=== PATIENT | male | born 1990 | race Native Hawaiian/Other Pacific Islander ===

== ENCOUNTER 2024-04-21 20:32 | Emergency (ER) | payer BC ==
[2024-04-21] MEDS: IBUPROFEN 600 MG TAB PO STA (21:22)
[2024-04-21] MEDS: ONDANSETRON ODT 4 MG TAB PO STA (21:22)
[2024-04-21] MEDS: ACETAMINOPHEN TAB 500 MG TAB PO STA (21:23)
[2024-04-21] MEDS: ORPHENADRINE 30 MG/ML 2 ML VIAL IM STA (22:47)
[2024-04-21] MEDS: AMOXICILLIN 500 MG CAP PO STA (22:47)
[2024-04-21] MEDS: LIDOCAINE 4% PATCH TOPICAL ONE (22:48)
--- NOTE | 2024-04-21 23:04 | ED ---
ENT HPI - General Chief complaint: ENT Stated complaint: sore throat, ear pain, etch Time Seen by Provider: 04/21/24 20:38 Source: patient Mode of arrival: ambulatory Limitations: no limitations - History of Present Illness Initial comments: 34-year-old male presenting with chief complaint of sore throat. Patient has had a sore throat since Monday. Also experiencing vomiting. He is febrile today. Admits to cough. No chest pain or difficulty breathing. No abdominal pain. No diarrhea. Patient is also a flareup of his chronic back pain. This is lower back pain with radiation down the legs. No new injury or trauma. No loss of bowel or bladder control or saddle paresthesia. No urinary symptoms. - Related Data Previous Rx's Medication Instructions Recorded Amoxicillin 500 mg PO Q12HR 10 Days #20 cap 04/21/24 Allergies Allergy/AdvReac Type Severity Reaction Status Date / Time Sulfa (Sulfonamide Allergy Rash/Hives Verified 04/21/24 20:36 Antibiotics) Review of Systems ROS Statement: Those systems with pertinent positive or pertinent negative responses have been documented in the HPI. ROS Other: All systems not noted in ROS Statement are negative. Past Medical History Past Medical History: No Reported History History of Any Multi-Drug Resistant Organisms: None Reported Past Surgical History: No Surgical Hx Reported Past Psychological History: No Psychological Hx Reported Past Alcohol Use History: Occasional Past Drug Use History: None Reported General Exam Limitations: no limitations General appearance: alert, in no apparent distress Head exam: Present: atraumatic, normocephalic, normal inspection Eye exam: Present: normal appearance, EOMI Expanded Throat exam: tonsillar erythema Neck exam: Present: normal inspection, tenderness, lymphadenopathy. Absent: meningismus Respiratory exam: Present: normal lung sounds bilaterally. Absent: respiratory distress, wheezes, rales, rhonchi, stridor Cardiovascular Exam: Present: regular rate, normal rhythm, normal heart sounds. Absent: systolic murmur, diastolic murmur, rubs, gallop, clicks Neurological exam: Present: alert, oriented X3 Psychiatric exam: Present: normal affect, normal mood Skin exam: Present: normal color Course Vital Signs 04/21/24 20:33 Temperature 99.3 F Pulse Rate 115 H Respiratory 16 Rate Blood Pressure 101/67 O2 Sat by Pulse 98 Oximetry Medical Decision Making - Medical Decision Making Was pt. sent in by a medical professional or institution (HATTIE Nolan, SCIENTIFIC LINGUIST, urgent care, hospital, or senior care...) When possible be specific @ -No Did you speak to anyone other than the patient for history (EMS, parent, family, police, friend...)? What history was obtained from this source @ -No Did you review nursing and triage notes (agree or disagree)? Why? @ -I reviewed and agree with nursing and triage notes Were old charts reviewed (outside hosp., previous admission, EMS record, old EKG, old radiological studies, urgent care reports/EKG's, senior care records)? Report findings @ -No old charts were reviewed Differential Diagnosis (chest pain, altered mental status, abdominal pain women, abdominal pain men, vaginal bleeding, weakness, fever, dyspnea, syncope, headache, dizziness, GI bleed, back pain, seizure, CVA, palpatations, mental health, musculoskeletal)? @ -Differential includes URI, strep pharyngitis, viral pharyngitis, peritonsillar abscess, this is not an all-inclusive list EKG interpreted by me (3pts min.). @ -As above X-rays interpreted by me (1pt min.). @ -None done CT interpreted by me (1pt min.). @ -None done U/S interpreted by me (1pt. min.). @ -None done What testing was considered but not performed or refused? (CT, X-rays, U/S, labs)? Why? @ -None What meds were considered but not given or refused? Why? @ -None Did you discuss the management of the patient with other professionals (professionals i.e. HATTIE Nolan, SCIENTIFIC LINGUIST, lab, RT, psych nurse, social worker delinquency prevention, child care worker, teacher, occupational health and safety officer, geriatric case manager)? Give summary @ -No Was smoking cessation discussed for >3mins.? @ -No Was critical care preformed (if so, how long)? @ -No Were there social determinants of health that impacted care today? How? (Homelessness, low income, unemployed, alcoholism, drug addiction, transportation, low edu. Level, literacy, decrease access to med. care, fdc, rehab)? @ -No Was there de-escalation of care discussed even if they declined (Discuss DNR or withdrawal of care, Hospice)? DNR status @ -No What co-morbidities impacted this encounter? (DM, HTN, Smoking, COPD, CAD, Cancer, CVA, ARF, Chemo, Hep., AIDS, mental health diagnosis, sleep apnea, morbid obesity)? @ -None Was patient admitted / discharged? Hospital course, mention meds given and route, prescriptions, significant lab abnormalities, going to OR and other pertinent info. @ -34-year-old male presenting with chief complaint of of sore throat. History and physical examination are conducted. Posterior pharynx is erythematous, no midline shift. No stridor or drooling. No muffled voice. Patient is positive for group A strep. Negative for influenza, RSV, COVID. Patient will be treated with amoxicillin. For his back pain same Norflex and lidocaine patch. He received Motrin Tylenol for fever. Zofran for nausea. On reassessment he reports improvement in his symptoms. Prescription for amoxicillin sent to the pharmacy. Discharged. Follow-up with PCP. Report back to ER with any new or worsening symptoms. Discussed return parameters and answered all questions. Patient conveyed verbal understanding and agreed to the plan. I discussed this case in detail with my attending Dr. Fall Undiagnosed new problem with uncertain prognosis? @ -No Drug Therapy requiring intensive monitoring for toxicity (Heparin, Nitro, Insulin, Cardizem)? @ -No Were any procedures done? @ -No Diagnosis/symptom? @ -Strep pharyngitis Acute, or Chronic, or Acute on Chronic? @ -Acute Uncomplicated (without systemic symptoms) or Complicated (systemic symptoms)? @ -Complicated Side effects of treatment? @ -No Exacerbation, Progression, or Severe Exacerbation? @ -No Poses a threat to life or bodily function? How? (Chest pain, [place], [place], pneumonia, PE, COPD, DKA, ARF, appy, cholecystitis, CVA, Diverticulitis, Homicidal, Suicidal, threat to staff... and all critical care pts) @ -Potential but unlikely Diagnosis/symptom? @Back pain Acute, or Chronic, or Acute on Chronic? @Acute on chronic Uncomplicated (without systemic symptoms) or Complicated (systemic symptoms)? @Uncomplicated Side effects of treatment? @None Exacerbation, Progression, or Severe Exacerbation] @No Poses a threat to life or bodily function? @No - Lab Data Lab Results 04/21/24 04/21/24 Range/Units 21:15 21:15 Influenza Type A (PCR) Not Detected (Not Detectd) Influenza Type B (PCR) Not Detected (Not Detectd) RSV (PCR) Not Detected (Not Detectd) SARS-CoV-2 (PCR) Not Detected (Not Detectd) Group A Strep (PCR) DETECTED A (Not Detectd) Disposition Clinical Impression: Strep pharyngitis Disposition: HOME SELF-CARE Condition: Good Instructions (If sedation given, give patient instructions): Strep Throat (ED) Additional Instructions: Follow-up with PCP. Report back to ER with any new or worsening symptoms. Alternate Motrin and Tylenol for fever control. Take medication as prescribed. Prescriptions: Amoxicillin 500 mg PO Q12HR 10 Days #20 cap Is patient prescribed a controlled substance at d/c from ED?: No Referrals: None,Stated [Primary Care Provider] - 1-2 days Time of Disposition: 23:04
[2024-04-21 23:11] VITALS: BP 112/73; PULSE 87; RESP 18; TEMP 98.2
== END 2024-04-21 23:12 | disposition home or self-care (01) ==
LOC: EC 20:32
DX: J02.0 Streptococcal pharyngitis (principal); G89.29 Other chronic pain; M54.9 Dorsalgia, unspecified; Z88.2 Allergy status to sulfonamides
CPT/HCPCS: 87651; 87636; 99283; 96372; J2360

== ENCOUNTER 2024-04-25 23:26 | Emergency (ER) | payer BC ==
[2024-04-26] MEDS: diphenhydrAMINE 50 MG/ML 1 ML VIAL IVP STA (00:38)
[2024-04-26] MEDS: METOCLOPRAMIDE 5 MG/ML 2 ML VIAL IVP STA (00:40)
[2024-04-26 00:42] LABS: Basophils # (A) 0.1 k/uL (0-0.2); Basophils % (A) 1 %; Eosinophils # (A) 0.3 k/uL (0-0.7); Eosinophils % (A) 1 %; HCT 41.5 % (39.0-53.0); Lymphocytes # (A) 3.7 k/uL (1.0-4.8); Lymphocytes % (A) 19 %; MCH 28.4 pg (25.0-35.0); MCHC 33.8 g/dL (31.0-37.0); MCV 83.9 fL (80.0-100.0); Mean Platelet Volume 7.9; Monocytes # (A) 1.3 k/uL (0-1.0); Monocytes % (A) 7 %; Neutrophils # (A) 14.2 k/uL (1.3-7.7); Neutrophils % (A) 71 %; Platelet Count 337 k/uL (150-450); RBC 4.95 m/uL (4.30-5.90); RDW 12.8 % (11.5-15.5)
[2024-04-26] MEDS: MORPHINE SULFATE 4 MG/ML SYRINGE IVP STA (00:42)
[2024-04-26] MEDS: SODIUM CHLORIDE 0.9% 1,000 ML IV STA (00:44)
[2024-04-26 01:00] LABS: ALT 34 U/L (4-49); AST 32 U/L (17-59); African American GFR (CKD) >90 (>60 ml/min/1.73 sqM); Albumin 4.4 g/dL (3.5-5.0); Alkaline Phosphatase 76 U/L (38-126); Anion Gap 9 mmol/L; Blood Urea Nitrogen 11 mg/dL (9-20); Calcium 9.2 mg/dL (8.4-10.2); Carbon Dioxide 24 mmol/L (22-30); Chloride 105 mmol/L (98-107); Glucose 87 mg/dL (74-99); Non-African American GFR(CKD) >90 (>60 ml/min/1.73 sqM); Potassium 4.2 mmol/L (3.5-5.1); Sodium 138 mmol/L (137-145); Total Bilirubin 0.6 mg/dL (0.2-1.3); Total Protein 7.6 g/dL (6.3-8.2)
--- NOTE | 2024-04-26 01:17 | CT ---
EXAMINATION TYPE: CT brain wo con DATE OF EXAM: 04/26/2024 COMPARISON: None. HISTORY: Patient states headache for the past 4 days. States he is being treated for strep. CT DLP: 1184.5 mGycm. Automated Exposure Control for Dose Reduction was Utilized. TECHNIQUE: CT scan of the head is performed without contrast. FINDINGS: There is no acute intracranial hemorrhage, mass effect, or midline shift identified. The ventricles and sulci are within normal limits in size. Possible tiny midline posterior scalp hematom a image 44. Correlate clinically. The globes are intact and the visualized sinuses are clear. IMPRESSION: No acute intracranial hemorrhage or midline shift is seen. [facility], , 04/26/2024 1:15 AM
[2024-04-26 01:26] VITALS: RESP 17
[2024-04-26] MEDS: ACETAMINOPHEN TAB 500 MG TAB PO STA (01:40)
[2024-04-26] MEDS: KETOROLAC 15 MG/ML 1 ML VIAL IVP STA (01:42)
[2024-04-26 02:24] VITALS: TEMP 99.8
[2024-04-26 02:35] VITALS: BP 118/70; PULSE 99
--- NOTE | 2024-04-26 02:38 | ED ---
General Adult HPI - General Chief complaint: Headache Stated complaint: Headache Time Seen by Provider: 04/26/24 00:00 Source: patient, RN notes reviewed, old records reviewed Mode of arrival: ambulatory Limitations: no limitations - History of Present Illness Initial comments: Patient is a 34-year-old male who presents emergency department complaining of headaches. Diagnosed with strep pharyngitis earlier this week and has been on amoxicillin. Currently on day 4. States for the last day he has been having a pretty severe headache. Does not recall when he last took Tylenol or Motrin. Denies any nausea or vomiting with it. Denies any blurry vision. States he feels warm. Denies abdominal pain. Denies chest pain or shortness of breath. Presents for further evaluation at this time. No history of migraines or headaches. States it is in the occipital region. Pulsating sensation. - Related Data Previous Rx's Medication Instructions Recorded Amoxicillin 500 mg PO Q12HR 10 Days #20 cap 04/21/24 Allergies Allergy/AdvReac Type Severity Reaction Status Date / Time Sulfa (Sulfonamide Allergy Rash/Hives Verified 04/25/24 23:30 Antibiotics) Review of Systems ROS Statement: Those systems with pertinent positive or pertinent negative responses have been documented in the HPI. Review of Systems: CONST: Denies fever EYES: Denies blurry vision ENT: Denies nasal congestion C/V: Denies Chest pain RESP: Denies shortness of breath GI: Denies abdominal pain : Denies dysuria SKIN: Denies rash. MSK: Denies joint pain. NEURO: Endorses headache ROS Other: All systems not noted in ROS Statement are negative. Past Medical History Past Medical History: No Reported History History of Any Multi-Drug Resistant Organisms: None Reported Past Surgical History: No Surgical Hx Reported Past Psychological History: No Psychological Hx Reported Smoking Status: Never smoker Past Alcohol Use History: Occasional Past Drug Use History: Marijuana General Exam - General Exam Comments Initial Comments: General: Appears in no acute distress. HEAD: Normal with no signs of head trauma. EYES: EOMI. Pupils are 3 mm and equal bilaterally. ENT: Hearing grossly intact, normal oropharynx. RESPIRATORY: Clear breath sounds bilaterally. No wheezes, rales, or rhonchi. C/V: Regular rate and rhythm. S1 and S2 auscultated, no edema, peripheral pulses 2+ and intact throughout ABD: Abd is soft, nontender, nondistended EXT: Normal range of motion, no obvious deformity SKIN: No rashes or lesions observed on exposed skin. NEURO: Alert and oriented x 4. No focal deficits. GCS of 15. Limitations: no limitations Course Vital Signs 04/25/24 04/26/24 04/26/24 23:28 01:20 02:23 Temperature 99 F 101.9 F H 99.8 F H Pulse Rate 102 H 97 Respiratory 20 17 Rate Blood Pressure 138/87 108/67 O2 Sat by Pulse 98 98 Oximetry 04/26/24 04/26/24 02:31 02:40 Temperature 99.8 F H 99.8 F H Pulse Rate 99 99 Respiratory 17 17 Rate Blood Pressure 118/70 118/70 O2 Sat by Pulse 98 98 Oximetry Medical Decision Making - Medical Decision Making Was pt. sent in by a medical professional or institution ( PA, SALES DEVELOPMENT MANAGER, urgent care, hospital, or retirement...) When possible be specific @ -No Did you speak to anyone other than the patient for history (EMS, parent, family, police, friend...)? What history was obtained from this source @ -No Did you review nursing and triage notes (agree or disagree)? Why? @ -I reviewed and agree with nursing and triage notes Were old charts reviewed (outside hosp., previous admission, EMS record, old EKG, old radiological studies, urgent care reports/EKG's, retirement records)? Report findings @ -Reviewed chart from earlier this week when patient was diagnosed with strep pharyngitis. This occurred on April 21, 2024. Differential Diagnosis (chest pain, altered mental status, abdominal pain women, abdominal pain men, vaginal bleeding, weakness, fever, dyspnea, syncope, headache, dizziness, GI bleed, back pain, seizure, CVA, palpatations, mental health, musculoskeletal)? @ -Headache, COVID, flu, strep. This list is not all inclusive. EKG interpreted by me (3pts min.). @ -None done X-rays interpreted by me (1pt min.). @ -None done CT interpreted by me (1pt min.). @ -CT brain reveals no obvious acute intracranial process. U/S interpreted by me (1pt. min.). @ -None done What testing was considered but not performed or refused? (CT, X-rays, U/S, labs)? Why? @ -None What meds were considered but not given or refused? Why? @ -None Did you discuss the management of the patient with other professionals (professionals i.e. , PA, SALES DEVELOPMENT MANAGER, lab, RT, psych nurse, outreach and education social worker, rubber compounder supervisor, teacher, correctional program officer, case mgr)? Give summary @ -No Was smoking cessation discussed for >3mins.? @ -No Was critical care preformed (if so, how long)? @ -No Were there social determinants of health that impacted care today? How? (Homelessness, low income, unemployed, alcoholism, drug addiction, transportation, low edu. Level, literacy, decrease access to med. care, custodial, rehab)? @ -No Was there de-escalation of care discussed even if they declined (Discuss DNR or withdrawal of care, Hospice)? DNR status @ -No What co-morbidities impacted this encounter? (DM, HTN, Smoking, COPD, CAD, Cancer, CVA, ARF, Chemo, Hep., AIDS, mental health diagnosis, sleep apnea, morbid obesity)? @ -None Was patient admitted / discharged? Hospital course, mention meds given and route, prescriptions, significant lab abnormalities, going to OR and other pertinent info. @ -Based on the patient's presentation and physical exam, patient presents emergency department complaining of headache. Currently being treated for strep pharyngitis. Vital signs within acceptable limits. No neurocomplaints. We will obtain CT. Is he is describing it as a very severe headache for him with no history of migraines. We will obtain basic labs and patient will be adminis tered a migraine cocktail. Patient was in agreement this plan. Vital signs within acceptable limits. Laboratory studies remarkable for leukocytosis of 20 which is commonly seen in strep pharyngitis. Viral swabs negative. Remainder of labs unremarkable. CT imaging unremarkable. On reevaluation, patient is feeling improved. He will be discharged home at this time. Given a work note. Recommended he continue with antibiotics as well as antipyretic medications at home. Strict return precautions discussed. I instructed the patient to follow up with their PCP in the next 1-3 days. . I explained that the patient should return to the emergency department if they experience any worsening symptoms. Strict return precautions were discussed with the patient. The patient expressed understanding of these instructions. I answered all questions that the patient had. The patient was discharged home in good condition with their prescriptions and follow up information. Undiagnosed new problem with uncertain prognosis? @ -No Drug Therapy requiring intensive monitoring for toxicity (Heparin, Nitro, Insulin, Cardizem)? @ -No Were any procedures done? @ -No Diagnosis/symptom? @ -Strep pharyngitis, headache, febrile illness Acute, or Chronic, or Acute on Chronic? @ -Acute Uncomplicated (without systemic symptoms) or Complicated (systemic symptoms)? @ -Complicated Side effects of treatment? @ -No Exacerbation, Progression, or Severe Exacerbation? @ -No Poses a threat to life or bodily function? How? (Chest pain, [place], [place], pneumonia, PE, COPD, DKA, ARF, appy, cholecystitis, CVA, Diverticulitis, Homicidal, Suicidal, threat to staff... and all critical care pts) @ -Unlikely - Lab Data Result diagrams: 04/26/24 00:01 04/26/24 00:01 Lab Results 04/26/24 04/26/24 04/26/24 Range/Units 00:01 00:01 01:12 WBC 20.0 H (3.8-10.6) k/uL RBC 4.95 (4.30-5.90) m/uL Hgb 14.0 (13.0-17.5) gm/dL Hct 41.5 (39.0-53.0) % MCV 83.9 (80.0-100.0) fL MCH 28.4 (25.0-35.0) pg MCHC 33.8 (31.0-37.0) g/dL RDW 12.8 (11.5-15.5) % Plt Count 337 (150-450) k/uL MPV 7.9 Neutrophils % 71 % Lymphocytes % 19 % Monocytes % 7 % Eosinophils % 1 % Basophils % 1 % Neutrophils # 14.2 H (1.3-7.7) k/uL Lymphocytes # 3.7 (1.0-4.8) k/uL Monocytes # 1.3 H (0-1.0) k/uL Eosinophils # 0.3 (0-0.7) k/uL Basophils # 0.1 (0-0.2) k/uL Sodium 138 (137-145) mmol/L Potassium 4.2 (3.5-5.1) mmol/L Chloride 105 (98-107) mmol/L Carbon Dioxide 24 (22-30) mmol/L Anion Gap 9 mmol/L BUN 11 (9-20) mg/dL Creatinine 0.85 (0.66-1.25) mg/dL Est GFR (CKD-EPI)AfAm >90 (>60 ml/min/1.73 sqM) Est GFR (CKD-EPI)NonAf >90 (>60 ml/min/1.73 sqM) Glucose 87 (74-99) mg/dL Calcium 9.2 (8.4-10.2) mg/dL Total Bilirubin 0.6 (0.2-1.3) mg/dL AST 32 (17-59) U/L ALT 34 (4-49) U/L Alkaline Phosphatase 76 (38-126) U/L Total Protein 7.6 (6.3-8.2) g/dL Albumin 4.4 (3.5-5.0) g/dL Influenza Type A (PCR) Not Detected (Not Detectd) Influenza Type B (PCR) Not Detected (Not Detectd) RSV (PCR) Not Detected (Not Detectd) SARS-CoV-2 (PCR) Not Detected (Not Detectd) Disposition Clinical Impression: Headache, Febrile illness, Strep pharyngitis Disposition: HOME SELF-CARE Condition: Good Instructions (If sedation given, give patient instructions): Acute Headache (ED) Additional Instructions: Follow-up with PCP. Use antipyretics for fever. Symptoms were likely from high fever from strep pharyngitis. Complete course of antibiotics for strep, prescribed earlier this week. Is patient prescribed a controlled substance at d/c from ED?: No Referrals: None,Stated [Primary Care Provider] - 1-2 days Forms: Area PCPs Time of Disposition: 02:37
== END 2024-04-26 02:49 | disposition home or self-care (01) ==
LOC: EC 23:26
DX: J02.0 Streptococcal pharyngitis (principal); R51.9 Headache, unspecified; R50.9 Fever, unspecified; Z88.2 Allergy status to sulfonamides
CPT/HCPCS: 36415; 80053; 85025; 87636; 70450; 99285; 96374; 96375; 96361; J2270; J1200; J2765; J1885